=== PATIENT | male | born 1950 | race Caucasian/White ===

== ENCOUNTER 2019-09-14 09:22 | Emergency (ER) | payer MEDICARE, OTHER, SELFPAY ==
--- NOTE | ~2019-09-14 | XR_ITS ---
EXAMINATION: XR chest 2V EXAM DATE: 09/14/2019 10:09 INDICATION: Weakness. TECHNIQUE: Portable AP frontal chest x-ray was obtained. There is no prior study for comparison. FINDINGS: There is moderate-sized right pleural effusion, and a small left pleural effusion. There is adjacent compressive atelectasis. There is a right-sided Chemo-Port. There is no pneumothorax suspec sarah. The bones are osteopenic. There are bony degenerative changes. IMPRESSION: 1. Moderate right, small pleural effusions, adjacent atelectasis. Reviewed, dictated and finalized at location A.
[2019-09-14 09:18] VITALS: BP 105/85; PULSE 98; RESP 18; TEMP 36.6; O2SAT 99
--- NOTE | 2019-09-14 09:25 | ECG_ITS ---
Measurements Intervals [place] Rate: 96 P: 37 IN: 142 QRS: -53 QRSD: 65 T: 30 QT: 329 QTc: 417 Interpretive Statements SINUS RHYTHM LOW QRS VOLTAGE IN PRECORDIAL LEADS ANTERIOR INFARCT, AGE INDETERMINATE INFERIOR INFARCT, AGE INDETERMINATE BORDERLINE ST-T WAVE ABNORMALITY- LATERAL LEADS BASELINE WANDER- I, II, III, AVL, AVF ABNORMAL ECG Electronically Signed On 09-14-2019 15:04:22 CDT by Shadi Mancia D.O.
[2019-09-14 09:26] VITALS: PULSE 98
[2019-09-14 09:52] LABS: Basophils Percent Auto 0.6 % (0.2-1.2); Eosinophils Percent Auto 0.3 % (0-4.4); Hematocrit 40.4 % (42.0-52.0); Hemoglobin 14.2 g/dL (14.0-18.0); Immature Granulocyte Absolute 0.03 K/mm3 (0.00-0.031); Immature Granulocyte Percent A 0.5 % (0-0.5); Immature Platelet Fraction Pct 3.9 % (0.9-11.2); Lymphocytes Absolute Auto 0.69 K/mm3 (0.9-3.2); Lymphocytes Percent Auto 10.6 % (18.3-44.2); Mean Corpuscular HGB Conc 35.1 g/dl (32-36); Mean Corpuscular Hemoglobin 31.6 pg (26-34); Monocytes Absolute Auto 0.5 K/mm3 (0.1-0.6); Monocytes Percent Auto 7.5 % (2.6-8.5); Neutrophils Absolute Auto 5.2 K/mm3 (1.3-6.7); Neutrophils Percent Auto 80.5 % (45.5-73.1); Platelet Count Result 144 k/mm3 (150-375); Red Blood Count 4.49 M/mm3 (4.6-6.20); White Blood Count 6.5 K/mm3 (4.5-10.0)
--- NOTE | 2019-09-14 10:17 | ED.WEAKNESS ---
HPI - Weakness General Chief complaint: Weakness Stated complaint: weakness Time Seen by Provider: 09/14/19 09:35 Source: patient Mode of arrival: EMS Limitations: no limitations History of Present Illness HPI Narrative: Patient is a 69-year-old male who presents to the emergency department with complaint of diffuse generalized weakness. Patient has history of colon cancer with liver metastases. Patient has been on chemotherapy, but has not had treatment in approximately 1 month due to issues with his liver function. Patient is not a surgical candidate. He denies any other medical issues. Patient has had poor appetite and has not been eating or drinking much in the last several days. Patient denies any nausea, vomiting, or diarrhea. He states his last bowel movement was today. Patient does have ascites with history of paracentesis in the past. Patient complains of abdominal distention. Patient has been progressively more malnourished and weak. Complaint: generalized weakness Onset (ago): day(s) Duration: constant Location: generalized Related Data Home Medications Medication Instructions Recorded Confirmed diphenoxylate-atropine [Lomotil] 1 tablet PO DAILY 09/14/19 omeprazole 20 mg PO DAILY 09/14/19 spironolactone 25 mg PO DAILY 09/14/19 vitamin B complex 1 tablet PO DAILY 09/14/19 Allergies Allergy/AdvReac Type Severity Reaction Status Date / Time No Known Allergies Allergy Verified 09/14/19 09:32 Review of Systems Review of Systems: All systems reviewed & are unremarkable except as noted in HPI and below Constitutional: Constitutional: Denies fever(s), Reports lethargy, Reports malaise, Reports poor appetite and Reports weakness Gastrointestinal: Gastrointestinal: Denies diarrhea, Denies nausea and Denies vomiting [facility] Past Medical History Medical History (Updated 09/14/19 @ 14:33 by Ericka Strange MD) Colon cancer metastasized to liver Social History Social History (Updated 09/14/19 @ 10:24 by Ericka Strange MD) Living arrangements: with family Exam Const: General: cooperative, no acute distress, alert and ill appearing chronically Nutritional Appearance: cachectic Orientation/consciousness: patient oriented x3 Limitations: no limitations HENMT: Mouth: Yes lip normal and Yes moist mucous membranes Resp: Effort & Inspection: normal respiratory effort Auscultation: clear to auscultation bilaterally Cardio: Rate: regular rate Rhythm: regular rhythm GI: Inspection: distended GI Palp: Yes Soft to palpation, No Tenderness to palpation present (GI) and Yes Ascites present Auscultation: normal bowel sounds Skin: General skin exam: normal color Neuro: General: patient oriented x3 Cognition (Neuro): normal cognition Speech: normal speech Extrem: General: normal to inspection, full ROM and no clubbing, cyanosis or edema Psych: Mental Status: mental status grossly normal Affect: normal affect Attitude: cooperative Course Course Emergency Course: Patient presents to the emergency department with generalized weakness and poor appetite. Patient has metastatic colon cancer to his liver. Patient has ascites. He is requesting a paracentesis. Patient advised he will need to follow-up with his oncologist to arrange for outpatient paracentesis as there is only one radiologist in house on the weekend and this does not constitute an emergency procedure. Patient is very comfortable in appearance and vital signs are stable. Patient hydrated as he has had poor p.o. intake. Labs otherwise look stable aside from dehydration and patient is appropriate for ongoing outpatient management. Patient advised the likely cause of his weakness and feeling bad is his metastatic cancer and that he should follow-up with his oncologist. Vital Signs Vital signs: Vital Signs Temperature 97.8 F 09/14/19 09:18 Pulse Rate 98 09/14/19 09:18 Respiratory Rate 18 09/14/19 09:18 Blood Press
[2019-09-14 10:21] VITALS: BP 114/83; PULSE 91; RESP 14; O2SAT 96
[2019-09-14] MEDS: LACTATED RINGERS 1,000 ML 999 ML IV CONT (10:22)
[2019-09-14 10:33] LABS: INR 1.2; Prothrombin Time 15.1 Seconds (11.1-14.7)
[2019-09-14 10:34] LABS: Partial Thromboplastin Time 32.6 SECONDS (22.3-36.8)
[2019-09-14 10:35] LABS: Alanine Aminotransferase 43 U/L (4-50); Albumin Level 2.4 g/dL (3.5-5.1); Alkaline Phosphatase 509 U/L (38-126); Aspartate Amino Transferase 67 U/L (17-59); Bilirubin,Total 8.7 mg/dL (0.2-1.3); Blood Urea Nitrogen 21 mg/dL (9-20); Calcium 8.5 mg/dL (8.4-10.2); Carbon Dioxide 27 mmol/L (22-30); Chloride 102 mmol/L (98-107); Estimated CRCL calculation 76 ml/min; Estimated Glomerular Filt Rate > 60; Glucose 104 mg/dL (75-110); Magnesium 1.9 mg/dL (1.6-2.3); Potassium 4.3 mmol/L (3.4-5.0); Sodium 130 mmol/L (137-145)
[2019-09-14 11:45] VITALS: BP 123/82; PULSE 84; RESP 22; O2SAT 96
[2019-09-14 12:03] LABS: Add Urine Microscopic? YES; Appearance Urine Clear (Clear); Bilirubin Urine 2+ (Negative); Blood Urine Negative (Negative); Color Urine Amber (Yellow); Glucose Urine UA Negative (Negative); Ketones Urine Negative (Negative); Leukocyte Esterase Ur Negative LEU/UL (Negative); Mucus Urine Rare /lpf; Nitrate Urine Negative (Negative); Protein Urine Negative (Negative); RBC Urine 0-2 /hpf (0-2); Specific Grav Ur 1.027 (1.001-1.035)
[2019-09-14 12:38] VITALS: BP 131/89; PULSE 88; RESP 16; O2SAT 98
[2019-09-14 14:58] VITALS: BP 124/90; PULSE 92; RESP 17; O2SAT 100
[2019-09-14] MEDS: HEPARIN SOD FLUSH 500 UNITS/5 ML SYRINGE (14:58)
== END 2019-09-14 14:59 | disposition home or self-care (01) ==
PROVIDERS: Emergency Provider Emergency Medicine; PCP Emergency Medicine
DX: C18.9 Malignant neoplasm of colon, unspecified (principal); C78.7 Secondary malignant neoplasm of liver and intrahepatic bile duct; E86.0 Dehydration; R18.0 Malignant ascites; R64 Cachexia; Z79.899 Other long term (current) drug therapy; R94.31 Abnormal electrocardiogram [ECG] [EKG]
CPT/HCPCS: 36415; 71046; 80053; 81001; 83735; 84100; 85025; 85055; 85610; 85730; 93005; 96360; 99283; J7120